=== PATIENT | female | born 1945 | race Caucasian/White ===

== ENCOUNTER → 2016-05-30 | Outpatient (CLI) | payer BC ==
[~2016-05-30] MED LIST: ASPCH81 PO; BUPR150T5 PO; CHOL400C7 PO; DIAZ5TAB PO; ESTR1CRE PV; LISI-725 PO; LORA1TAB13; METF1000 PO; OXYC1TAB3 PO
[2016-05-30 12:28] LABS: ALT/SGPT 13 U/L (12-78); BLOOD UREA NITROGEN 21 mg/dl (7-18); BUN/CREATININE RATIO 26.7 (10-20); CALCIUM 9.7 mg/dl (8.5-10.1); CARBON DIOXIDE 23 mmol/L (21-32); CHLORIDE 114 mmol/L (98-107); CHOLESTEROL 187 mg/dl (0-200); GLUCOSE 83 mg/dl (70-99); MAGNESIUM 2.2 mg/dl (1.8-2.4); SODIUM 146 mmol/L (136-145); TRIGLYCERIDES 105 mg/dl (0-150); VERY LOW DENSITY LIPOPROT CALC 21 mg/dl
[2016-05-30 12:32] LABS: ESTIMATED AVERAGE GLUCOSE 108 mg/dl; HA1C FLAG Normal (Normal)
[2016-05-30 12:38] LABS: CHOLESTEROL/HDL RATIO 5.1; HDL CHOLESTEROL 37 mg/dl; LDL CHOLESTEROL CALCULATED 129 mg/dl
== END | disposition home or self-care (01) ==
LOC: C.LAB1850 11:02
PROVIDERS: ATTEND Family Medicine
DX: E11.9 Type 2 diabetes mellitus without complications (principal); I10 Essential (primary) hypertension; R00.2 Palpitations

== ENCOUNTER → 2016-09-04 | Outpatient (CLI) | payer BC | END | disposition home or self-care (01) | LOC: C.LABSPEC 10:51 | PROVIDERS: ATTEND Nurse Practitioner Family | DX: J06.9 Acute upper respiratory infection, unspecified (principal) ==

== ENCOUNTER → 2017-06-12 | Outpatient (CLI) | payer BC ==
[2017-06-12 12:14] LABS: BASO % 0.3 %; BASO ABS # 0.02 K/uL (0-0.2); EOS ABS # 0.23 K/uL (0-0.5); HEMATOCRIT 41.6 % (37-47); HEMOGLOBIN 13.7 g/dL (12.0-16.0); IG# 0.04 K/uL (0.00-0.02); LYMPH % 32.3 %; LYMPH ABS # 2.46 K/uL (1.2-3.4); MEAN CELL VOLUME 87.4 fL (80-100); MEAN CORPUSCULAR HEMOGLOBIN 28.8 pg (25-34); MEAN CORPUSCULAR HGB CONC 32.9 g/dl (32-36); MEAN PLATELET VOLUME 8.4 fL (7.4-10.4); MONO % 4.2 %; MONO ABS # 0.32 K/uL (0.11-0.59); NEUT % 59.7 %; NEUT ABS # 4.55 K/uL (1.4-6.5); PLATELET COUNT 280 K/uL (130-400); RED CELL DISTRIBUTION WIDTH CV 15.2 % (11.5-14.5); WHITE BLOOD COUNT 7.62 K/uL (4.8-10.8)
[2017-06-12 12:44] LABS: HEMOGLOBIN A1C 5.6 % (4.5-5.6)
[2017-06-12 12:55] LABS: BLOOD UREA NITROGEN 19 mg/dl (7-18); CARBON DIOXIDE 23 mmol/L (21-32); CREATININE 0.92 mg/dl (0.60-1.20); GLUCOSE 90 mg/dl (70-99); SODIUM 141 mmol/L (136-145)
[2017-06-12 12:59] LABS: ALT/SGPT 15 U/L (12-78); CHOLESTEROL 166 mg/dl (0-200); LDL CHOLESTEROL CALCULATED 109 mg/dl
== END | disposition home or self-care (01) ==
LOC: C.LABPBG 10:18
PROVIDERS: ATTEND Family Medicine
DX: E11.9 Type 2 diabetes mellitus without complications (principal)